=== PATIENT | male | born 1970 | race Caucasian/White ===

== ENCOUNTER → 2018-12-31 14:20 | Outpatient (CLI) | payer BC, SELFPAY | PROVIDERS: Visit Provider Physician Assistant | DX: J02.9 Acute pharyngitis, unspecified (principal); J06.9 Acute upper respiratory infection, unspecified | CPT/HCPCS: 87070 ==

== ENCOUNTER 2019-05-09 23:56 | Emergency (ER) | payer BC, SELFPAY ==
[2019-05-10 00:01] VITALS: BP 134/66; PULSE 78; RESP 18; TEMP 36.1; O2SAT 100; BMI 24.4
--- NOTE | 2019-05-10 00:06 | DI.CT.S_ITS ---
PROCEDURE: CT KIDNEY URETER BLADDER (KUB) INDICATIONS: severe Left flank pain, radiation to groin TECHNIQUE: Noncontrast 5 mm thick sections acquired from the diaphragms to the symphysis. 5 mm thick coronal and sagittal reformats were then performed. For radiation dose reduction, the following was used: automated exposure control, adjustment of mA and/or kV according to patient size. COMPARISON: None. FINDINGS: Image quality: Diagnostic. Lung bases: Lung bases are clear. Heart size is normal. Urinary system: Both kidneys are normal in size. A no nephrolithiasis is identified. However, there is a one-2 mm calculus evident within the distal left ureter at the vesicoureteral junction (image 85, series 2), with associated mild to moderate hydroureter and mild hydronephrosis. Perinephric edema and periureteral edema is evident proximally. No additional renal or ureteral calculi are present bilaterally. There is no right-sided hydronephrosis. The bladder is within normal limits. No bladder calculi are evident. The prostate is not enlarged. Other solid organs: Liver is normal in size. Gallbladder is normal in size without surrounding inflammation. Pancreas is normal in contours. Spleen is normal in size. No adrenal nodules. Peritoneum and bowel: Unenhanced bowel loops demonstrate normal wall thickness and caliber. No free fluid or air. No loculated fluid collections are present. The appendix is well-visualized and normal. The small bowel loops are nondilated. The Nodes and vessels: No retroperitoneal or mesenteric adenopathy by size criteria. Aorta and inferior vena cava are normal in caliber. There is mild aortic atherosclerosis. Abdominal wall: No ventral hernias. Pelvis: No free pelvic fluid. No inguinal hernias or adenopathy. Bones: No suspicious bony lesions. No vertebral body compression fractures. IMPRESSION: 1. Small (1-2 mm) distal left ureteral calculus with corresponding mild to moderate hydroureter arthrosis and hydroureter. 2. No additional nephroureterolithiasis. Note: The preliminary [facility] report and the final report are concordant. Dictated by: Oswaldo Hollingsworth M.D. on 05/10/2019 at 7:11 Approved by: Oswaldo Hollingsworth M.D. on 05/10/2019 at 7:24
[2019-05-10 00:24] LABS: Add Manual Diff / Slide Review NO; Basophils Absolute Auto 0 /uL (0-100); Basophils Percent Auto 0.4 % (0-2); Eosinophils Absolute Auto 100 /uL (0-450); Eosinophils Percent Auto 0.7 % (2-4); Hematocrit 44.6 % (41-53); Lymphocytes Absolute Auto 2000 /uL (1100-4500); Lymphocytes Percent Auto 21.6 % (25-40); Mean Corpuscular HGB Conc 33.6 % (30-36); Mean Corpuscular Hemoglobin 30.1 PG (26-34); Mean Corpuscular Volume 89.4 fL (80-100); Monocytes Absolute Auto 1000 /uL (0-900); Monocytes Percent Auto 10.6 % (3-14); Neutrophils Absolute Auto 6100 /uL (1500-7000); Neutrophils Percent Auto 66.7 % (50-75); Platelet Count 186 X10^3/uL (150-400); Red Blood Cell Count 4.99 X10^6/uL (4.5-5.9); Red Cell Distribution Width 12.7 % (11.6-14.8); White Blood Cell Count 9.1 X10^3/uL (4.5-11.0)
[2019-05-10] MEDS: SODIUM CHLORIDE 0.9% 1,000 ML 1000 ML IV (00:24)
[2019-05-10] MEDS: KETOROLAC 60 MG/2 ML VIAL 15 MG IV (00:25)
--- NOTE | 2019-05-10 00:39 | ED_ITS ---
HPI - Male Genitourinary General Chief complaint: Urogenital-Male Stated complaint: left side pain thinks kidney stone Time Seen by Provider: 05/10/19 00:00 Source: patient and family Mode of arrival: ambulatory Limitations: no limitations History of Present Illness HPI Narrative: 49-year-old male nonsmoker presents with his in the chief complaint of severe sudden-onset left flank pain with radiation to his groin. He denies any history of the same. He has had no injuries in. It started a few hours prior to his arrival in his left back and now wraps around his flank and into his groin. He denies any provocation or palliation. He has had nausea and vomiting. He denies any fever but feels chilled. He denies any dysuria, frequency or urgency Onset (ago): hour(s) Duration: intermittent Location: left inguinal region and left flank Severity: severe Severity scale (1-10): 8 Quality: sharp and stabbing Relieving factors: none Exacerbating factors: none Reports nausea/vomiting Related Data Home Medications Medication Instructions Recorded Confirmed naproxen sodium [Aleve] 220 mg PO #0 08/24/17 12/31/18 fexofenadine PO 12/31/18 12/31/18 Previous Rx's Medication Instructions Recorded ketorolac 10 mg PO Q6H PRN #14 tab 05/10/19 ondansetron 4 mg PO TID-QID PRN #10 tab 05/10/19 tamsulosin [Flomax] 0.4 mg PO DAILY #10 cap 05/10/19 tramadol 50 mg PO Q8H PRN #14 tab 05/10/19 Allergies Allergy/AdvReac Type Severity Reaction Status Date / Time Penicillins [PENICILLINS] Allergy Unknown Verified 05/10/19 00:03 Review of Systems Constitutional Denies chills, Denies fever(s), Denies lethargy and Denies weakness Eyes Denies change in vision, Denies eye discharge, Denies irritation and Denies loss of vision ENT Ears, Nose, Mouth, and Throat: Denies change in voice, Denies neck pain and Denies sore throat Cardiovascular Denies chest pain, Denies irregular heart rhythm, Denies lightheadedness, Denies palpitations, Denies dyspnea, Denies dyspnea on exertion and Denies orthopnea Respiratory Denies cough, Denies dyspnea, Denies dyspnea on exertion and Denies wheezing Gastrointestinal Gastrointestinal: Denies abdominal pain, Denies change in bowel habits, Denies diarrhea, Reports nausea and Reports vomiting Genitourinary Denies hematuria, Reports flank pain, Denies urinary incontinence and Denies urinary urgency Musculoskeletal Denies neck pain Integumentary/Breasts Denies pruritus, Denies erythema, Denies rash and Denies wounds Neurologic Denies confusion, Denies loss of vision and Denies weakness Psychiatric Denies anxiety, Denies confusion, Denies depression, Denies homicidal ideation and Denies suicidal ideation Endocrine Denies palpitations Hematologic/Lymphatic Denies easy bruising Allergic/Immunologic Denies wheezing PFSH Social History Smoking Status: Never smoker Social History Smoking Status: Never smoker Exam Narrative Exam Narrative: GENERAL: 49-year-old male appears younger than stated age, obviously very uncomfortable and pacing in the room, hand on his left flank HEAD: Atraumatic. Normocephalic. No temporal or scalp tenderness. EYES: Pupils equal round and reactive. Extraocular motions intact. No scleral icterus. No injection or drainage. ENT: Nose without bleeding, purulent drainage or septal hematoma. Throat without erythema, tonsillar hypertrophy or exudate. Uvula midline. Airway patent. NECK: Trachea midline. No JVD or lymphadenopathy. Supple, nontender, no meningeal signs. CARDIOVASCULAR: Regular rate and rhythm without murmurs, gallops, or rubs. RESPIRATORY: Clear to auscultation. Breath sounds equal bilaterally. No wheezes, rales, or rhonchi. GASTROINTESTINAL: Abdomen soft, non-tender, nondistended. No hepato-splenomega ly, or palpable masses. No guarding. EXTREMITIES: No clubbing, cyanosis, or edema. No joint tenderness, effusion, or edema noted. BACK: Nontender without deformity or crepitance. No flank tenderness. NEURO: AOx3. SKIN: No rash or erythema. Initial Vital Signs Initial Vital Signs: Vital Signs Temperature 96.9 F L 05/10/19 00:01 Pulse Rate 78 05/10/19 00:01 Respiratory Rate 18 05/10/19 00:01 Blood Pressure 134/66 05/10/19 00:01 Pulse Oximetry 100 05/10/19 00:01 Course Orders Ordered: ED Orders 05/10/19 00:06 CT kidney ureter bladder (KUB) Stat 05/10/19 00:15 Complete Blood Count AUTO DIFF Stat 05/10/19 00:38 Basic Metabolic Panel Stat Discontinued Medications Sodium Chloride (Normal Saline 0.9%) 1,000 mls @ 1,000 mls/hr IV BOLUS ONE Stop: 05/10/19 01:05 Last Infusion: 05/10/19 02:01 Dose: 1,000 mls/hr Admin: 05/10/19 00:24 Dose: 1,000 mls/hr Lidocaine HCl 6.3 ml/ Sodium (Chloride) 56.3 mls @ 337.8 mls/hr IV NOW ONE Stop: 05/10/19 00:48 Last Infusion: 05/10/19 02:00 Dose: 337.8 mls/hr Admin: 05/10/19 01:41 Dose: 337.8 mls/hr Ketorolac Tromethamine (Toradol) 15 mg IV NOW ONE Stop: 05/10/19 00:07 Last Admin: 05/10/19 00:25 Dose: 15 mg Ondansetron HCl (Zofran) 4 mg IV Q4HR PRN PRN Reason: Nausea And Vomiting Ondansetron HCl (Zofran Odt Prepack) 1 bottle MISC SEEINSTR ONE Stop: 05/10/19 01:59 Last Admin: 05/10/19 02:16 Dose: 1 bottle Tamsulosin HCl (Flomax) 0.4 mg PO NOW ONE Stop: 05/10/19 01:59 Last Admin: 05/10/19 02:17 Dose: 0.4 mg Tramadol HCl (Ultram 50mg Prepack) 1 bottle MISC SEEINSTR ONE Stop: 05/10/19 01:59 Last Admin: 05/10/19 02:16 Dose: 1 bottle Vital Signs - 8 hr 05/10/19 00:01 05/10/19 02:20 Temperature 96.9 F L Pulse Rate 78 75 Respiratory Rate 18 16 Blood Pressure 134/66 Blood Pressure [Left Arm] 137/72 Pulse Oximetry 100 100 MDM - Male Genitourinary Lab Data Result diagrams: 05/10/19 00:15 05/10/19 00:38 Lab Results 05/10/19 05/10/19 Range/Units 00:15 00:38 WBC 9.1 (4.5-11.0) X10^3/uL RBC 4.99 (4.5-5.9) X10^6/uL Hgb 15.0 (13.5-17.5) g/dL Hct 44.6 (41-53) % MCV 89.4 (80-100) fL MCH 30.1 (26-34) PG MCHC 33.6 (30-36) % RDW 12.7 (11.6-14.8) % Plt Count 186 (150-400) X10^3/uL Neut % (Auto) 66.7 (50-75) % Lymph % (Auto) 21.6 L (25-40) % [place] % (Auto) 10.6 (3-14) % Eos % (Auto) 0.7 L (2-4) % Baso % (Auto) 0.4 (0-2) % Neut # (Auto) 6100 (2429-9237) /uL Lymph # (Auto) 2000 (2561-5148) /uL [place] # (Auto) 1000 H (0-900) /uL Eos # (Auto) 100 (0-450) /uL Baso # (Auto) 0 (0-100) /uL Sodium 140 (137-145) mmol/L Potassium 3.4 (3.4-5.1) mmol/L Chloride 108 H (98-107) mmol/L Carbon Dioxide 23 (22-32) mmol/L BUN 27 H (9-20) mg/dL Creatinine 1.00 (0.66-1.25) mg/dL Estimated GFR > 60.0 (>60) mL/min BUN/Creatinine Ratio 27.0 H (6-22) Glucose 155 H (70-100) mg/dL Calcium 9.3 (8.4-10.2) mg/dL Imaging Data CT KUB: Radiologist's impression: 1 mm stone distal left ureter Discharge Plan Departure Patient Disposition: Home Clinical Impression: Kidney calculi Discharge Date/Time: 05/10/19 02:43 Interventions: ED Discharge Assessment Last Done: 05/10/19 02:37 Instructions: DI for Kidney Stones Activity Restrictions/Additional Instructions: *You have been diagnosed with [left ureteral lithiasis] *What to do: *Take medications as directed: Prescriptions sent to [facility] (except Ultram) *Follow up with your primary care provider in 2-3 days, call for an appointment. Let them know you were seen in the Emergency Department and that we ask that you be seen in follow up. Additionally your been provided contact information for [facility] *Return to ER if you should have any new, worsening or concerning symptoms Prescriptions: New tamsulosin [Flomax] 0.4 mg capsule 0.4 mg PO DAILY Qty: 10 RF: 0 ketorolac 10 mg tablet 10 mg PO Q6H PRN (Reason: pain) Qty: 14 RF: 0 ondansetron 4 mg tablet,disintegrating 4 mg PO TID-QID PRN (Reason: nausea and vomiting) Qty: 10 RF: 0 tramadol 50 mg tablet 50 mg PO Q8H PRN (Reason: pain) Qty: 14 RF: 0 No Action fexofenadine PO RF: 0 naproxen sodium [Aleve] 220 MG capsule 220 mg PO Qty: 0 RF: 0 Referrals: Maranda Wills MD [Non-Staff] -
[2019-05-10 00:53] LABS: Blood Urea Nitrogen 27 mg/dL (9-20); Calcium 9.3 mg/dL (8.4-10.2); Carbon Dioxide 23 mmol/L (22-32); Chloride 108 mmol/L (98-107); Estimated Glomerular Filt Rate > 60.0 mL/min (>60); Glucose 155 mg/dL (70-100); HEMOLYSIS < 15 (0-50); Potassium 3.4 mmol/L (3.4-5.1); Sodium 140 mmol/L (137-145)
[2019-05-10] MEDS: LIDOCAINE 2% 6.3 ML in SODIUM CHLORIDE 0.9% 50 ML 337.8 ML IV (01:41)
[2019-05-10] MEDS: ONDANSETRON 4 MG ODT PREPACK 1 BOTTLE MISC (02:16)
[2019-05-10] MEDS: TRAMADOL 50 MG PREPACK 1 BOTTLE MISC (02:16)
[2019-05-10] MEDS: TAMSULOSIN 0.4 MG CAPSULE PO (02:17)
[2019-05-10 02:20] VITALS: BP 137/72; PULSE 75; RESP 16; O2SAT 100
== END 2019-05-10 02:43 | disposition home or self-care (01) ==
PROVIDERS: Emergency Provider Emergency Medicine
DX: N20.0 Calculus of kidney (principal)
CPT/HCPCS: 36415; 36591; 74176; 80048; 85025; 96361; 96365; 96375; 99283; 99284; J1885

== ENCOUNTER → 2023-03-29 14:04 | Outpatient (CLI) | payer BC, SELFPAY ==
--- NOTE | 2023-03-29 | DI.CT.S_ITS ---
PROCEDURE: CT KIDNEY URETER BLADDER (KUB) INDICATIONS: Personal history of urinary calculi TECHNIQUE: Axial sections were acquired from the lung bases to the pubic symphysis. Coronal and sagittal reformats were performed. For radiation dose reduction, the following was used: automated exposure control, adjustment of mA and/or kV according to patient size. COMPARISON: [facility], CT, CT KIDNEY URETER BLADDER (KUB), 05/10/2019, 0:08. FINDINGS: Image quality: Excellent. Lung bases: Lung bases are clear. Heart: No significant findings. URINARY: Right Kidney/ureter: There is an obstructing 4 mm distal right ureteral stone with associated mild right hydroureteronephrosis. Minimal renal pelvic and proximal right ureteral enhancement and stranding. Minimal right perinephric stranding. Left Kidney: No stones or hydronephrosis. Left Ureter: No hydroureter. Bladder: Normal wall thickness. No stones. ABDOMEN: Liver: Unremarkable. Gallbladder: Gallbladder is mildly contracted. Biliary ducts: Unremarkable. Pancreas: Unremarkable. Spleen: Unremarkable. Adrenal Glands: Unremarkable. Stomach and Bowel: Stomach, small bowel loops, and colon are unremarkable. Normal appendix. Peritoneum: No abnormal intraperitoneal fluid. No free air. Ventral Wall: No hernia. Abdominal Nodes: No enlarged retroperitoneal or mesenteric lymph nodes. Vessels: Aorta and inferior vena cava are normal in size. PELVIS: Pelvic Organs: Unremarkable. Pelvic Nodes: Unremarkable. Miscellaneous: No inguinal hernias are seen. Bones: No acute compression fractures. Mild multilevel spondylosis. IMPRESSION: Obstructing 4 mm distal right ureteral stone with associated mild right hydroureteronephrosis. There is also mild right perinephric and periureteral stranding. Recommend clinical correlation for possible concurrent infectious uropathy symptoms. Normal appendix. Dictated by: Arvin Ahuja M.D. on 03/29/2023 at 16:53 Approved by: Arvin Ahuja M.D. on 03/29/2023 at 16:59
== END ==
PROVIDERS: PCP Registered Nurse; Referring Provider Registered Nurse; Visit Provider Registered Nurse
DX: N20.0 Calculus of kidney (principal)
CPT/HCPCS: 74176

== ENCOUNTER → 2023-03-30 11:44 | Outpatient (CLI) | payer BC, SELFPAY ==
[2023-03-30 11:59] LABS: Appearance Urine UA CLEAR; Bilirubin Urine UA NEGATIVE (NEGATIVE); Color Urine UA YELLOW; Glucose Urine UA NEGATIVE (Negative); Ketones Urine UA NEGATIVE (NEGATIVE); Leukocyte Esterase Urine UA TRACE (NEGATIVE); Nitrite Urine UA NEGATIVE (Negative); Occult Blood Urine UA TRACE-INTACT (Negative); Protein Urine UA NEGATIVE (Negative); Urobilinogen Urine UA 0.2 E.U./dL (0.2)
[2023-03-30 12:13] LABS: Bacteria Urine None Seen; Culture Indicated Urine Specimen Cultured; RBC Urine 0-1/HPF (0-5/HPF); Squamous Epithelial Cell Urine None Seen (0-5/HPF); WBC Urine 1-5/HPF (0-5/HPF)
[2023-03-30 12:16] LABS: Add Manual Diff / Slide Review NO; Basophils Absolute Auto 0 /uL (0-100); Basophils Percent Auto 0.6 % (0-2); Eosinophils Absolute Auto 100 /uL (0-450); Eosinophils Percent Auto 2.5 % (2-4); Hematocrit 39.2 % (41-53); Hemoglobin 13.4 g/dL (13.5-17.5); Lymphocytes Absolute Auto 1100 /uL (1100-4500); Lymphocytes Percent Auto 20.3 % (25-40); Mean Corpuscular HGB Conc 34.1 % (30-36); Mean Corpuscular Hemoglobin 31.1 PG (26-34); Mean Corpuscular Volume 91.2 fL (80-100); Monocytes Absolute Auto 500 /uL (0-900); Neutrophils Absolute Auto 3500 /uL (1500-7000); Neutrophils Percent Auto 67.6 % (50-75); Platelet Count 186 X10^3/uL (150-400); Red Cell Distribution Width 13.1 % (11.6-14.8); White Blood Cell Count 5.2 X10^3/uL (4.5-11.0)
[2023-03-30 12:39] LABS: Alanine Aminotransferase 21 IU/L (<50); Albumin 3.8 g/dL (3.5-5.0); Albumin Globulin Ratio 1.4 (1.0-2.8); Alkaline Phosphatase 81 U/L (38-126); Aspartate Aminotransferase 21 IU/L (17-59); BUN Creatinine Ratio 21.2 (6-22); Bilirubin Total 0.5 mg/dL (0.2-1.3); Blood Urea Nitrogen 24 mg/dL (9-20); Calcium 8.8 mg/dL (8.4-10.2); Carbon Dioxide 29 mmol/L (22-32); Chloride 104 mmol/L (98-107); Estimated Glomerular Filt Rate > 60 mL/min (>60); Globulin 2.7 g/dL (1.7-4.1); Glucose 100 mg/dL (70-100); HEMOLYSIS < 15 (0-50); Potassium 4.2 mmol/L (3.4-5.1); Sodium 137 mmol/L (137-145); Total Protein 6.5 g/dL (6.3-8.2)
== END ==
PROVIDERS: PCP Registered Nurse; Referring Provider Registered Nurse; Visit Provider Registered Nurse
DX: N20.0 Calculus of kidney (principal)
CPT/HCPCS: 36415; 80053; 81001; 85025; 87086

== ENCOUNTER → 2023-04-23 15:35 | Outpatient (CLI) | payer BC, SELFPAY ==
--- NOTE | 2023-04-23 15:36 | DI.CT.S_ITS ---
PROCEDURE: CT KIDNEY URETER BLADDER (KUB) INDICATIONS: Asymptomatic microscopic hematuria TECHNIQUE: Axial sections were acquired from the lung bases to the pubic symphysis. Coronal and sagittal reformats were performed. For radiation dose reduction, the following was used: automated exposure control, adjustment of mA and/or kV according to patient size. COMPARISON: [facility], CT, CT KIDNEY URETER BLADDER (KUB), 03/29/2023, 14:23. FINDINGS: Image quality: Excellent. Lung bases: Unremarkable. Heart: No significant findings. URINARY: Right Kidney: Persistent 4 millimeter stone within the distal right ureter. Decreased hydronephrosis. Right Ureter: Mild hydroureter. Left Kidney: No stones or hydronephrosis. Left Ureter: No hydroureter. Bladder: Normal wall thickness. No stones. ABDOMEN: Liver: Unremarkable. Gallbladder: Unremarkable. Biliary ducts: Unremarkable. Pancreas: Unremarkable. Spleen: Unremarkable. Adrenal Glands: Unremarkable. Stomach and Bowel: Stomach, small bowel loops, and colon are unremarkable. Peritoneum: No abnormal intraperitoneal fluid. No free air. Ventral Wall: No hernia. Abdominal Nodes: No enlarged retroperitoneal or mesenteric lymph nodes. Vessels: Aorta and inferior vena cava are normal in size. PELVIS: Pelvic Organs: Unremarkable. Pelvic Nodes: Unremarkable. Miscellaneous: No inguinal hernias are seen. Bones: Unremarkable. IMPRESSION: Persistent 4 millimeter stone within the distal right ureter, with decreased hydronephrosis and hydroureter. Dictated by: Avelino Peng M.D. on 04/23/2023 at 16:10 Approved by: Avelino Peng M.D. on 04/23/2023 at 16:13
== END ==
PROVIDERS: PCP Registered Nurse; Referring Provider Registered Nurse; Visit Provider Registered Nurse
DX: N13.2 Hydronephrosis with renal and ureteral calculous obstruction (principal); R30.0 Dysuria; R31.21 Asymptomatic microscopic hematuria; Z87.442 Personal history of urinary calculi
CPT/HCPCS: 74176

== ENCOUNTER 2023-05-01 22:45 | Emergency (ER) | payer BC, SELFPAY ==
[2023-05-01 22:49] VITALS: BP 177/105
[2023-05-01 22:50] VITALS: BP 177/105; PULSE 62; PULSE 82; RESP 18; TEMP 36.6; O2SAT 99; BMI 24.7
--- NOTE | 2023-05-01 22:55 | DI.RAD.S_ITS ---
PROCEDURE: XR KUB INDICATIONS: flank pain, known 4mm stone TECHNIQUE: One view of the abdomen acquired. COMPARISON: [facility], CT, CT KIDNEY URETER BLADDER (KUB), 04/23/2023, 15:46. FINDINGS: Surgical changes and devices: None. Bowel: Bowel gas pattern is nonobstructive. Moderate right colonic stool. Soft tissues: No suspicious abdominal calcifications. Visualized solid organ contours appear normal in size. Right pelvic calcification overlying region right ureteral calculus. Bones: No suspicious bony lesions. IMPRESSION: Right pelvic calcification within region previously identified distal ureteral calculus. Dictated by: Bernadette Almaraz M.D. on 05/02/2023 at 0:01 Approved by: Bernadette Almaraz M.D. on 05/02/2023 at 0:02
[2023-05-01 23:00] VITALS: BP 154/89; PULSE 69; RESP 18; O2SAT 99
[2023-05-01] MEDS: PANTOPRAZOLE 40 MG VIAL IV (23:19)
[2023-05-01] MEDS: SODIUM CHLORIDE 0.9% 1,000 ML 1000 ML IV (23:19)
[2023-05-01] MEDS: ONDANSETRON 4 MG/2 ML INJ IV (23:19)
[2023-05-01 23:30] VITALS: BP 156/84; PULSE 63; O2SAT 100
[2023-05-01 23:30] LABS: Alanine Aminotransferase 23 IU/L (<50); Albumin Globulin Ratio 1.3 (1.0-2.8); Alkaline Phosphatase 91 U/L (38-126); Aspartate Aminotransferase 24 IU/L (17-59); BUN Creatinine Ratio 20.9 (6-22); Bilirubin Total 0.7 mg/dL (0.2-1.3); Blood Urea Nitrogen 32 mg/dL (9-20); Calcium 8.9 mg/dL (8.4-10.2); Carbon Dioxide 25 mmol/L (22-32); Chloride 105 mmol/L (98-107); Estimated Glomerular Filt Rate 55 mL/min (>60); Glucose 99 mg/dL (70-100); HEMOLYSIS < 15 (0-50); Potassium 3.8 mmol/L (3.4-5.1); Sodium 139 mmol/L (137-145)
--- NOTE | 2023-05-01 23:30 | PC.NURSE ---
pt has a hx of a kidney stone on the right has had CT x 2 now c/o nausea, pt has appt with urologist next week
[2023-05-02] VITALS: PULSE 61; O2SAT 100
[2023-05-02 00:30] VITALS: PULSE 62; O2SAT 99
[2023-05-02 01:00] VITALS: PULSE 64; O2SAT 100
--- NOTE | 2023-05-02 01:29 | ED_ITS ---
HPI - Back Pain/Injury General Chief Complaint: Back Pain/Injury Stated Complaint: kidney stone stuck in ureter,sent by MD Time Seen by Provider: 05/01/23 22:54 Source: patient History of Present Illness HPI Narrative: 53-year-old male nonsmoker with history of known right-sided kidney stone that he has been dealing with for the past 4 weeks presents with increasing right flank pain, nausea and generally feeling unwell. He contacted his primary care provider and was directed to the emergency department for further evaluation. He has an appointment on the books with the [facility] next week. He denies fever or chills but states that he has pain in his right flank and right groin. He has had 2 CTs confirming a 4 mm stone in the right distal ureter. He has been taking his medications as directed which includes Flomax Related Data Previous Rx's Medication Instructions Recorded ondansetron 4 mg disintegrating 4 mg PO TID-QID PRN nausea and 05/02/23 tablet vomiting #10 tabs tramadol 50 mg tablet 50 mg PO Q8H PRN pain #14 tabs 05/02/23 Allergies Allergy/AdvReac Type Severity Reaction Status Date / Time Penicillins [PENICILLINS] Allergy Unknown Verified 05/10/19 00:03 Review of Systems Review of Systems Narrative: GENERAL: See HPI HEENT: Denies sinus pain, ear pain, sore throat, difficulty swallowing, dizziness. RESPIRATORY: Denies dyspnea, cough, wheezing, hemoptysis, sputum. CARDIOVASCULAR: Denies chest pain, palpitations, orthopnea, edema, GASTROINTESTINAL: Denies nausea, vomiting, abdominal pain, diarrhea, constipation, melena. : See HPI MUSCULOSKELETAL: denies weakness, joint pain, or bony pain SKIN: Denies rash, skin lesions, or other NEUROLOGIC: Denies weakness, headache, numbness, change in speech, confusion, seizures, incoordination. PSYCHIATRIC: No concerning psychosocial issues. 12 point review of systems is negative except for those stated above Patient History Medical History (Updated 05/02/23 @ 02:18 by Milad Walker DO) Coronavirus infection Sinusitis Social History Smoking Status: Never smoker Smoking Status: Never smoker Substance Use Type: does not use Exam Narrative Exam Narrative: GENERAL: [53] year old patient appears stated age. Well-developed patient, in mild distress. HEAD: Atraumatic. Normocephalic. EYES: Pupils equal round and reactive. Extraocular motions intact. No scleral icterus. No injection or drainage. ENT: Nose without bleeding, purulent drainage. Throat without erythema, tonsillar hypertrophy or exudate. Airway patent. NECK: Trachea midline. Non tender CARDIOVASCULAR: Regular rate and rhythm without murmurs, gallops, or rubs. RESPIRATORY: Clear to auscultation. Breath sounds equal bilaterally. No wheezes, rales, or rhonchi. GASTROINTESTINAL: Abdomen soft, non-tender, nondistended. EXTREMITIES: No edema or joint tenderness. BACK: Nontender without deformity or crepitance. No flank tenderness. NEURO: AOx3. SKIN: No rash or erythema of visible areas Initial Vital Signs Initial Vital Signs: Vital Signs Blood Pressure 177/105 H 05/01/23 22:49 Course Orders Ordered: ED Orders 05/01/23 22:55 XR KUB Stat Sodium Chloride (Normal Saline 0.9%) 1,000 mls @ 1,000 mls/hr IV BOLUS ONE Stop: 05/02/23 02:34 Last Admin: 05/02/23 01:36 Dose: 1,000 mls/hr Ondansetron HCl (Ondansetron 4 Mg Odt Prepack) 1 bottle MISC SEEINSTR ONE Stop: 05/02/23 02:22 Discontinued Medications Sodium Chloride (Normal Saline 0.9%) 1,000 mls @ 1,000 mls/hr IV BOLUS ONE Stop: 05/01/23 23:54 Last Infusion: 05/02/23 01:02 Dose: 0 mls/hr Documented By: Admin: 05/01/23 23:19 Dose: 1,000 mls/hr Documented By: DUARTE Ondansetron HCl (Ondansetron 4 Mg/2 Ml Inj) 4 mg IV NOW ONE Stop: 05/01/23 22:56 Last Admin: 05/01/23 23:19 Dose: 4 mg Documented By: DUARTE Pantoprazole Sodium (Pantoprazole 40 Mg Vial) 40 mg IV NOW ONE Stop: 05/01/23 22:56 Last Admin: 05/01/23 23:19 Dose: 40 mg Documented By: DUARTE Consultations Consultation #1: discussed with security professional urology Dr. Fregoso. We have discussed patient's clinical course including the history and physical exam for today, labs and imaging. He states patient is appropriate for discharge, requests that we transmitted information to his office and he will get patient in the next day or 2. Vital Signs Vital signs: Vital Signs - 8 hr 05/01/23 22:50 05/01/23 22:49 05/01/23 22:50 Temperature 97.9 F Pulse Rate 62 82 Respiratory Rate 18 Blood Pressure 177/105 H 177/105 H Pulse Oximetry 99 99 Oxygen Delivery Method Room Air 05/01/23 23:00 05/01/23 23:00 05/01/23 23:30 Temperature Pulse Rate 69 Respiratory Rate 18 Blood Pressure 154/89 H 156/84 H Pulse Oximetry 99 Oxygen Delivery Method 05/01/23 23:30 05/02/23 00:00 05/02/23 00:30 Temperature Pulse Rate 63 61 62 Respiratory Rate Blood Pressure Pulse Oximetry 100 100 99 Oxygen Delivery Method 05/02/23 01:00 05/02/23 01:30 Temperature Pulse Rate 64 69 Respiratory Rate Blood Pressure Pulse Oximetry 100 100 Oxygen Delivery Method MDM - Back Pain/Injury Lab Data 05/01/23 11:08 Labs: Lab Results 05/01/23 Range/Units 11:08 Sodium 139 (137-145) mmol/L Potassium 3.8 (3.4-5.1) mmol/L Chloride 105 (98-107) mmol/L Carbon Dioxide 25 (22-32) mmol/L BUN 32 H (9-20) mg/dL Creatinine 1.53 H (0.66-1.25) mg/dL Estimated GFR 55 L (>60) mL/min BUN/Creatinine Ratio 20.9 (6-22) Glucose 99 (70-100) mg/dL Calcium 8.9 (8.4-10.2) mg/dL Total Bilirubin 0.7 (0.2-1.3) mg/dL AST 24 (17-59) IU/L ALT 23 (<50) IU/L Alkaline Phosphatase 91 (38-126) U/L Total Protein 7.0 (6.3-8.2) g/dL Albumin 4.0 (3.5-5.0) g/dL Globulin 3.0 (1.7-4.1) g/dL Albumin/Globulin Ratio 1.3 (1.0-2.8) MDM Narrative Medical decision making narrative: [53] year old patient presents with R flank pain and feeling a bit punky Multiple etiologies for patient's symptoms considered including, but not limited to: [dehydration vs. obstructive uropathy vs. infection vs. other] Prior Charts reviewed in our EMR Primary Historian: patient Labs reviewed and interpreted by myself: slight bump in creatinine, no signs of infection Imaging reviewed: Xray KUB notes no obvious change in size or location of known stone Consultations: discussed with Dr. Fregoso, see details above Patient's symptoms improved over duration of stay with above-stated therapies. He has no signs of sepsis and is feeling much better after fluids. I have discussed with Urology who states there is no indication for repeat labs or imaging, patient is appropriate for discharge and will follow-up closely in the office Findings and discharge diagnosis discussed with patient/family followed by verbalization of understanding Return precautions discussed with patient/family whom verbalize understanding of diagnosis and plan Discharge Plan Departure Patient Disposition: Home Clinical Impression: Kidney stone on right side, Acute kidney injury Instructions: Kidney Stones -- Adult Activity Restrictions/Additional Instructions: *You have been diagnosed with [right sided kidney stone with mild acute kidney injury ] *What to do: *Please continue to take your regular medications as directed. [x ] New medication prescriptions sent to your pharmacy: [[facility] ] [ ] New medication written as a paper prescription [ ] No new medications given *Please follow up with Dr. Fregoso in the Urology Clinic, call later today for an appointment. Let them know you were seen in the Emergency Department and that we ask that you be seen in follow up. We will electronically transmit a record of today's note *Return to Emergency Department if you should have any new, worsening or concerning symptoms, such as [fever greater than 101 F, shaking chills, worsening pain, persistent vomiting or other bothersome symptoms] Prescriptions: New ondansetron 4 mg tablet,disintegrating 4 mg PO TID-QID PRN (Reason: nausea and vomiting) Qty: 10 0RF tramadol 50 mg tablet 50 mg PO Q8H PRN (Reason: pain) Qty: 14 0RF Referrals: Vinita Knowles ARNP [Primary Care Provider] - Stand Alone Forms: Patient Portal/API
[2023-05-02 01:30] VITALS: PULSE 69; O2SAT 100
[2023-05-02] MEDS: SODIUM CHLORIDE 0.9% 1,000 ML 1000 ML IV (01:36)
[2023-05-02 02:00] VITALS: PULSE 71; O2SAT 100
[2023-05-02] MEDS: ONDANSETRON 4 MG ODT PREPACK 1 BOTTLE MISC (02:27)
== END 2023-05-02 02:30 | disposition home or self-care (01) ==
PROVIDERS: Emergency Provider Emergency Medicine; PCP Registered Nurse
DX: N17.9 Acute kidney failure, unspecified (principal); N20.0 Calculus of kidney
CPT/HCPCS: 36415; 74018; 80053; 96374; 96375; 99284; C9113; J2405

== ENCOUNTER → 2024-09-09 08:43 | Outpatient (CLI) | payer BC, SELFPAY ==
--- NOTE | 2024-09-09 08:43 | DI.MRI.S_ITS ---
PROCEDURE: MR LUMBAR SPINE WO CON INDICATIONS: SPINAL STENOSIS LUMBAR REGION,AXIAL LUMBAR PAIN TECHNIQUE: Noncontrast sagittal T1 spin echo and T2 fast echo, sagittal STIR, and T2 fast spin echo through the lumbar spine. In cases with scoliosis, additional coronal T2 fast spin echo may be performed. COMPARISON: None. FINDINGS: Image quality: Somewhat limited evaluation given patient motion. Mild retrolisthesis of L3 on L4, L4 on L5 and L5 on S1. Vertebral body height of the lumbar spine are well maintained. Mild fibrovascular end plate change at L1-2. Marrow edema about the left aspect of L5-S1 facet, favoring degenerative. Multilevel disc desiccation disc bulge. Conus terminates at the level L1-2, and is unremarkable. Right neural foraminal stenosis: Mild at L3-4, L4-5, and L5-S1. Left neural foraminal stenosis: Mild at L5-S1. Axial images: T12-L1: Mild bilateral facet arthropathy. No central canal stenosis. L1-2: Mild bilateral facet arthropathy. No central canal stenosis. L2-3: Mild bilateral facet arthropathy. No central canal stenosis. L3-4: Mild disc bulge. Mild bilateral facet arthropathy with fluid within bilateral facet. No central canal stenosis. L4-5: Mild bilateral facet arthropathy with fluid within bilateral facet. No central canal stenosis. Mild disc bulge. L5-S1: Mild right, severe left facet arthropathy. No central canal stenosis. Mild disc bulge. Visualized sacrum is intact. No abdominal aortic aneurysm. IMPRESSION: 1. Multilevel degenerative changes of the lumbar spine, most pronounced at L5-S1, where there is mild bilateral neural foraminal stenosis. Dictated by: Suellen Carreno M.D. on 09/09/2024 at 14:18 Approved by: Suellen Carreno M.D. on 09/09/2024 at 14:27
== END ==
LOC: MRI 08:43
PROVIDERS: PCP Registered Nurse; Referring Provider Physical Medicine & Rehabilitation Pain Medicine; Visit Provider Physical Medicine & Rehabilitation Pain Medicine
DX: M48.061 Spinal stenosis, lumbar region without neurogenic claudication (principal); M48.07 Spinal stenosis, lumbosacral region; M47.817 Spondylosis without myelopathy or radiculopathy, lumbosacral region; M47.816 Spondylosis without myelopathy or radiculopathy, lumbar region
CPT/HCPCS: 72148

== ENCOUNTER 2025-02-19 10:56 | Emergency (ER) | payer BC, SELFPAY ==
[2025-02-19] VITALS (7 sets, daily range): BP systolic 119–143; BP diastolic 74–93; PULSE 89–185; RESP 13–29; TEMP 36.6; O2SAT 99–100
--- NOTE | 2025-02-19 11:00 | EKG_ITS ---
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
--- NOTE | 2025-02-19 11:00 | DI.RAD.S_ITS ---
PROCEDURE: XR CHEST 1V INDICATIONS: chest pain TECHNIQUE: One view of the chest was acquired. COMPARISON: None. FINDINGS: Surgical changes and devices: None. Lungs and pleura: Lungs are clear. No pleural effusions or pneumothorax. Mediastinum: Mediastinal contours appear normal. Heart size is normal. Bones and chest wall: No suspicious bony lesions. Overlying soft tissues appear unremarkable. IMPRESSION: No acute cardiopulmonary abnormality is seen. Dictated by: Romulo Mcgarry M.D. on 02/19/2025 at 11:46 Approved by: Romulo Mcgarry M.D. on 02/19/2025 at 11:47
--- NOTE | 2025-02-19 11:11 | ED_ITS ---
HPI - Arrhythmia/Palpitations General Chief Complaint: Arrhythmia/Palpitations Stated Complaint: Fast heart beat , light headedness Time Seen by Provider: 02/19/25 11:10 Source: patient Mode of arrival: Ambulatory History of Present Illness HPI narrative: Patient is a 54-year-old male with any significant past medical history presents for palpitations fast heart rate. He states that he was at work started noticing some palpitations checked his heart rate and it was in the 190s. Time of evaluation patient just feeling palpitations but no chest pain shortness of breath. He states that this has happened in the past states it normally lasts only 20 minutes does at carotid massage and it goes away, states that he has seen Dr. Sewell of cardiology and had a normal Holter monitor previously. He states that this episode has lasted an hour and a half therefore decided come into the ED for further evaluation treatment. Patient otherwise not complaining of any other symptoms at this time. Related Data Previous Rx's Medication Instructions Recorded ondansetron 4 mg disintegrating 4 mg PO TID-QID PRN nausea and 05/02/23 tablet vomiting #10 tabs tramadol 50 mg tablet 50 mg PO Q8H PRN pain #14 tabs 05/02/23 Allergies Allergy/AdvReac Type Severity Reaction Status Date / Time Penicillins [PENICILLINS] Allergy Unknown Verified 05/10/19 00:03 Review of Systems Review of Systems Narrative: General: Denies fever, chills, weight loss HEENT: Denies headache, eye drainage, eye irritation, head trauma, sore throat, voice change Cardiovascular: Positive palpitations, Denies any chest pain, tachycardia Respiratory: Denies any shortness of breath, cough, wheeze, stridor GI/: Denies any abdominal pain, nausea, vomiting, diarrhea, bright red blood per rectum, melanotic stools, urinary frequency, urinary retention, dysuria, hematuria MSK: Denies any joint pain, muscle pains, swelling Skin: Denies any rashes, lesions, discoloration Neuro: Denies any headache, lightheadedness, dizziness, fainting, weakness Psych: Denies SI/HI Patient History Medical History (Updated 02/19/25 @ 12:42 by Anshul Childress DO) Sinusitis Coronavirus infection Social History Smoking Status: Never smoker Smoking Status: Never smoker Exam Narrative Exam Narrative: General: Cooperative, well-developed, not in acute distress HEENT: Normocephalic, atraumatic, PERRLA, normal sclera, eyelids normal Neck: Active full range of motion, atraumatic Chest: Normal to inspection, negative crepitus, no overlying erythema ecchymosis Respiratory: Normal respiratory effort, not in acute respiratory distress, clear to auscultation bilaterally negative cough, wheeze, tachypnea, rhonchi, rales Cardiology: Tachycardic, negative gallops, murmur, rubs GI/: No tenderness to palpation, soft, non rigid, normal to inspection, exam deferred MSK: Full active range of motion in all 4 extremities, atraumatic, no tenderness to palpation of any bony prominences Skin: No rashes or lesions noted Neuro: Alert awake oriented x3, moves all 4 extremities spontaneously, cranial nerves intact, able to answer all questions appropriately follows commands appropriately Psych: Cooperative, negative suicidal or homicidal ideations Initial Vital Signs Initial Vital Signs: Vital Signs Temperature 98 F 02/19/25 11:00 Pulse Rate 185 H 02/19/25 11:00 Respiratory Rate 22 02/19/25 11:00 Blood Pressure 143/93 H 02/19/25 11:00 Pulse Oximetry 100 02/19/25 11:00 Oxygen Delivery Method Room Air 02/19/25 11:00 Course Orders Ordered: ED Orders 02/19/25 11:00 XR chest 1V Stat EKG-12 Lead Stat 02/19/25 11:09 Complete Blood Count AUTO DIFF Stat Comprehensive Metabolic Panel Stat Magnesium Stat TSH [Thyroid Stimulating Hormone] Stat Discontinued Medications Aspirin (Aspirin 81 Mg Chew Tab) 324 mg PO NOW ONE Stop: 02/19/25 11:01 Last Admin: 02/19/25 11:17 Dose: Not Given Documented By: LI Magnesium Sulfate (Magnesium Sulfate) 2 gm in 50 mls @ 150 mls/hr IV NOW ONE Stop: 02/19/25 11:29 Last Admin: 02/19/25 12:19 Dose: 150 mls/hr Documented By: LI Co-signed By: TRE Sodium Chloride (Normal Saline 0.9%) 1,000 mls @ 1,000 mls/hr IV BOLUS ONE Stop: 02/19/25 12:09 Last Infusion: 02/19/25 12:17 Dose: Infused Documented By: Admin: 02/19/25 11:15 Dose: 1,000 mls/hr Documented By: TRE(2) Vital Signs Vital signs: Vital Signs - 8 hr 02/19/25 11:00 02/19/25 11:06 02/19/25 11:30 Temperature 98 F Pulse Rate 185 H 179 H 94 H Respiratory Rate 22 19 29 H Blood Pressure 143/93 H Pulse Oximetry 100 99 100 Oxygen Delivery Method Room Air MDM - Arrhythmia/Palpitations Differential Diagnosis Differential diagnosis: Likely palpitations, artial fibrillation, artial flutter, ventricular premature beats, supraventricular tachycardia, WPW and other (Electrolyte abnormality) Lab Data 02/19/25 11:09 02/19/25 11:09 Labs: Lab Results 02/19/25 Range/Units 11:09 WBC 11.0 (4.5-11.0) X10^3/uL RBC 5.08 (4.5-5.9) X10^6/uL Hgb 15.4 (13.5-17.5) g/dL Hct 45.9 (41-53) % MCV 90.4 (80-100) fL MCH 30.4 (26-34) PG MCHC 33.6 (30-36) % RDW 13.2 (11.6-14.8) % Plt Count 270 (150-400) X10^3/uL Neut % (Auto) 75.0 (50-75) % Lymph % (Auto) 18.6 L (25-40) % Charlton % (Auto) 5.4 (3-14) % Eos % (Auto) 0.5 L (2-4) % Baso % (Auto) 0.5 (0-2) % Neut # (Auto) 8300 H (6600-7318) /uL Lymph # (Auto) 2000 (1500-3099) /uL Charlton # (Auto) 600 (0-900) /uL Eos # (Auto) 100 (0-450) /uL Baso # (Auto) 100 (0-100) /uL PT Cancelled INR Cancelled APTT Cancelled Sodium 140 (137-145) mmol/L Potassium 3.7 (3.4-5.1) mmol/L Chloride 109 H (98-107) mmol/L Carbon Dioxide 16 L (22-32) mmol/L BUN 18 (9-20) mg/dL Creatinine 1.32 H (0.66-1.25) mg/dL Estimated GFR > 60 (>60) mL/min BUN/Creatinine Ratio 13.6 (6-22) Glucose 210 H (70-100) mg/dL Calcium 9.5 (8.4-10.2) mg/dL Magnesium 1.7 (1.6-2.3) mg/dL Total Bilirubin 0.8 (0.2-1.3) mg/dL AST 32 (17-59) IU/L ALT 39 (<50) IU/L Alkaline Phosphatase 102 (38-126) U/L Total Creatine Kinase Cancelled Troponin I Cancelled NT-Pro-B Natriuret Pep Cancelled Total Protein 7.2 (6.3-8.2) g/dL Albumin 4.5 (3.5-5.0) g/dL Globulin 2.7 (1.7-4.1) g/dL Albumin/Globulin Ratio 1.7 (1.0-2.8) Lipase Cancelled TSH 3.25 (0.47-4.68) uIU/mL Imaging Data Chest x-ray: Radiologist's Impresson: [place] [address] XRay Report Signed Patient: Anuj Alberto MR#: [id number] : 1970 Acct:[id number] Age/Sex: 54 / M Date of Service: 02/19/25 Loc: ED Accession Number: [id number] Procedure: XR chest 1V Ordering Provider: Anshul Childress D.O. PROCEDURE: XR CHEST 1V INDICATIONS: chest pain TECHNIQUE: One view of the chest was acquired. COMPARISON: None. FINDINGS: Surgical changes and devices: None. Lungs and pleura: Lungs are clear. No pleural effusions or pneumothorax. Mediastinum: Mediastinal contours appear normal. Heart size is normal. Bones and chest wall: No suspicious bony lesions. Overlying soft tissues appear unremarkable. IMPRESSION: No acute cardiopulmonary abnormality is seen. ECG Data Interpretation: Initial EKG interpreted ED physician, SVT at 181 beats per minute QTC [address] changes no STEMI Repeat EKG after vagal, sinus at 99 beats per minute QTC 459, normal axis nonspecific ST changes no STEMI MDM Narrative Medical decision making narrative: 54-year-old male without any significant past medical history presenting for palpitations ongoing persistent for the past hour and a half. He states that he was at work and noticed palpitations checked his heart rate and it was in the 190s, he states that normally this has happened in the past he has done carotid massages and it has resolved however he states that today it lasted longer than normal and decided come into the ED for further evaluation treatment. At time of evaluation patient calm cooperative blood pressure stable, patient found to be in SVT, attempted vagal maneuvers time to, patient was able to come out of SVT without any administration of medication, fluids, magnesium and lab work was ordered along with a chest x-ray. 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 Sewell. Patient has remained normal sinus for he has entirety here in the emergency department, lab work is unremarkable, chest x-ray without any acute cardiopulmonary abnormality, EKG without any ischemic changes he was instructed to follow up with Cardiology and primary care in outpatient setting he was given strict return precautions he verbalized understanding of this and agrees with the discharged home with outpatient follow up Discharge Plan Departure Patient Disposition: Home Clinical Impression: SVT (supraventricular tachycardia) Instructions: Paroxysmal Supraventricular Tachycardia Activity Restrictions/Additional Instructions: Please follow up with Cardiology and primary care Please read the discharge instructions sheet carefully and bring all papers to all doctor follow-up visits, as it may contain information that your doctor may want to see. Disease processes change and evolve, if your symptoms worsen or if you develop any new symptoms that are concerning to you please return for evaluation. Your evaluation today does not show any evidence of any life- threatening/serious illnesses requiring admission to the hospital or surgery. Please follow-up with your doctor for re-evaluation in approximately 1 day. Seek immediate medical attention for any worrisome symptoms. *If you do not have a primary care provider please contact the [facility] Resource line at [phone]. They will ask some questions about your medical history and help get you set up with a doctor in the community. Prescriptions: No Action ondansetron 4 mg tablet,disintegrating 4 mg PO TID-QID PRN (Reason: nausea and vomiting) Qty: 10 0RF tramadol 50 mg tablet 50 mg PO Q8H PRN (Reason: pain) Qty: 14 0RF Referrals: Vinita Knowles ARNP [Primary Care Provider] - Brandy Sewell MD [Physician] - As soon as possible Stand Alone Forms: Patient Portal/API/Survey
--- NOTE | 2025-02-19 11:12 | EKG_ITS ---
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
[2025-02-19] MEDS: SODIUM CHLORIDE 0.9% 1,000 ML 1000 ML IV (11:15)
[2025-02-19 11:18] LABS: Add Manual Diff / Slide Review NO; Basophils Absolute Auto 100 /uL (0-100); Basophils Percent Auto 0.5 % (0-2); Eosinophils Absolute Auto 100 /uL (0-450); Eosinophils Percent Auto 0.5 % (2-4); Hematocrit 45.9 % (41-53); Hemoglobin 15.4 g/dL (13.5-17.5); Lymphocytes Absolute Auto 2000 /uL (1100-4500); Lymphocytes Percent Auto 18.6 % (25-40); Mean Corpuscular HGB Conc 33.6 % (30-36); Mean Corpuscular Hemoglobin 30.4 PG (26-34); Mean Corpuscular Volume 90.4 fL (80-100); Monocytes Absolute Auto 600 /uL (0-900); Monocytes Percent Auto 5.4 % (3-14); Neutrophils Absolute Auto 8300 /uL (1500-7000); Platelet Count 270 X10^3/uL (150-400); Red Blood Cell Count 5.08 X10^6/uL (4.5-5.9); Red Cell Distribution Width 13.2 % (11.6-14.8)
--- NOTE | 2025-02-19 11:23 | PC.NURSE ---
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 Dmitry cp, sob, dizziness. States that his HR was in 190s. Pt attempted vagal maneuver & carotid massage. No result with attempt and reports that rapid HR lasted longer than normal. Upon arrival to ED, pt's HR 185-190 during triage. EKG done. Dr Childress called to bedside. Another vagal maneuver attempt by and RN. Pt HR down to 94 and svt resolved. Pt remains cp free. A&Ox4. VS WNL
[2025-02-19 11:27] LABS: Alanine Aminotransferase 39 IU/L (<50); Albumin 4.5 g/dL (3.5-5.0); Albumin Globulin Ratio 1.7 (1.0-2.8); Alkaline Phosphatase 102 U/L (38-126); Aspartate Aminotransferase 32 IU/L (17-59); BUN Creatinine Ratio 13.6 (6-22); Bilirubin Total 0.8 mg/dL (0.2-1.3); Blood Urea Nitrogen 18 mg/dL (9-20); Calcium 9.5 mg/dL (8.4-10.2); Carbon Dioxide 16 mmol/L (22-32); Chloride 109 mmol/L (98-107); Estimated Glomerular Filt Rate > 60 mL/min (>60); Globulin 2.7 g/dL (1.7-4.1); Glucose 210 mg/dL (70-100); HEMOLYSIS < 15 (0-50); Magnesium 1.7 mg/dL (1.6-2.3); Potassium 3.7 mmol/L (3.4-5.1); Sodium 140 mmol/L (137-145); Total Protein 7.2 g/dL (6.3-8.2)
[2025-02-19 12:05] LABS: Thyroid Stimulating Hormone 3.25 uIU/mL (0.47-4.68)
[2025-02-19] MEDS: MAGNESIUM SULFATE 2 GM/50 ML PIGGYBACK IV (12:19)
== END 2025-02-19 12:47 | disposition home or self-care (01) ==
PROVIDERS: Emergency Provider Student in an Organized Health Care Education/Training Program; PCP Registered Nurse
DX: I47.10 Supraventricular tachycardia, unspecified (principal); R07.9 Chest pain, unspecified
CPT/HCPCS: 71045; 80053; 83735; 84443; 85025; 93005; 93010; 96361; 96365; 99284; J3475

== ENCOUNTER → 2025-04-28 08:07 | Outpatient (CLI) | payer BC, SELFPAY ==
--- NOTE | 2025-04-28 08:09 | DI.ECHO.S_ITS ---
[facility] : : [address] : : [place] : : [id number] : : Phone: [phone] Echocardiogram Report + + :Name: MARTHA VALE Study Date: 04/28/2025 Height: 73 in : :[facility] ReadingLocation: Weight: 205 lb : : Gender: Male BSA: 2.2 m2 : :: 1970 Age: 55 yrs BP: 120/86 mmHg: :Reason For Study: TACHYCARDIA : :Ordering Physician: OSWALDO LAW Performed By: Miguel Robertson : :Referring: OSWALDO LAW : + + Interpretation Summary 1. The left ventricular contractility is normal. Estimate ejection fraction is greater than 60% with no segmental wall motion abnormalities. No LVH. Unable to comment on diastolic function. 2. The right ventricle contractility is normal. 3. All cardiac chambers are of normal size. 4. No significant valvular abnormalities. 5. No obvious intracardiac shunts. 6. No obvious intracardiac masses nor thrombi. 7. No hemodynamically significant pericardial effusion. 8. Low right-sided filling pressures. Conclusion: Normal biventricular systolic function with no significant valvular abnormalities. Procedure: A two-dimensional transthoracic echocardiogram with color flow and Doppler was performed. The study quality was technically good. There is no prior echocardiogram noted for this patient. The patient was in a tachycardic rhythm during the exam. Left Ventricle: The left ventricle is normal in size. There is normal left ventricular wall thickness. There is no ventricular septal defect visualized. The ejection fraction is estimated to be 60-65%. There are no focal wall motion abnormalities. Right Ventricle: The right ventricle is normal in size and function. Atria: The left atrial size is normal. Right atrial size is normal. There is no Doppler evidence for an interatrial shunt. Mitral Valve: The mitral valve leaflets appear normal. There is no evidence of stenosis, fluttering, or prolapse. There is no mitral regurgitation noted. Aortic Valve: The aortic valve is trileaflet. The aortic valve opens well. No aortic regurgitation is present. Tricuspid Valve: The tricuspid valve leaflets are thin and pliable. No tricuspid regurgitation. Pulmonic Valve: The pulmonic valve is not well visualized. There is no pulmonic valvular regurgitation. Great Vessels: The aortic root is normal size. The dimensions of the ascending aorta are normal. The pulmonary artery is normal size. The IVC is of normal diameter and collapses greater than 50% with a sniff. This suggests a low right atrial pressure of 3 mm Hg. Pericardium/ Pleura There is no pericardial effusion. There is no pleural effusion. MMode/2D Measurements & Calculations LVIDd: 4.1 cm LVOT diam: 2.1 cm LVIDs: 3.1 cm Ao root diam: 3.4 cm FS: 24.4 % asc Aorta Diam: 3.0 cm EPSS: 0.70 cm Ao Arch Diam (Prox Trans): 1.7 cm IVSd: 0.96 cm LVPWd: 0.86 cm LV rodas. diameter/BSA (cm/m^2): 1.9 LV sys. diameter/BSA (cm/m^2): 1.4 LA A2 area: 17.6 cm2 RA long axis: 4.1 cm LA A4 area: 15.9 cm2 RA area: 10.8 cm2 LA length (vol): 5.0 cm RA vol: 24.4 ml LA vol: 47.4 ml RA : 11.2 ml/m2 LA vol index: 21.8 ml/m2 IVC diam: 1.4 cm RVD1 (basal): 2.9 cm RVD2 (mid): 2.6 cm Doppler Measurements & Calculations Ao V2 max: 113.5 cm/sec LVOT Max Sidney: 101.1 cm/sec Ao V2 mean: 77.3 cm/sec LV V1 max P.1 mmHg Ao max P.2 mmHg LV V1 VTI: 17.2 cm Ao mean P.6 mmHg KENDALL(I,D): 3.0 cm2 Ao V2 VTI: 19.2 cm KENDALL(V,D): 3.0 cm2 sev ratio: 0.89 KENDALL indexed to BSA (cm^2/m^2): 1.4 MV E max sidney: 56.1 cm/sec PA V2 max: 112.7 cm/sec MV A max sidney: 77.1 cm/sec PA V2 mean: 83.1 cm/sec MV E/A: 0.73 PA mean P.0 mmHg Med Peak E' Sidney: 5.0 cm/sec PA pr(Accel): 37.9 mmHg E/E' med: 11.2 Lat Peak E' Sidney: 4.9 cm/sec E/E' lat: 11.5 E/e' average: 11.4 MV dec time: 0.13 sec SV(LVOT): 57.7 ml Reading Physician:CATALINO
--- NOTE | 2025-04-28 08:09 | DI.NM.S_ITS ---
PROCEDURE: NM EXERCISE TREADMILL NON NUC COMPARISON: None. INDICATIONS: PAROXYMAL SVT FINDINGS: Rest ECG sinus rhythm 87 bpm. Elvis protocol 10:00, maximum heart rate 173 bpm (104% peak predicted), peak blood pressure 202/98, 12.8 METS, GILBERT 0%. Exercise ECG sinus tachycardia, 1-1.[address] segment depressions V5 and V6, rare PVCs. The patient did not report exercise-induced chest discomfort. IMPRESSION: Abnormal study. Exercise-induced ST segment changes consistent with ischemia. No evidence of exercise-induced arrhythmia. Normal hemodynamic response. Fair exercise capacity. Dictated by: Agata Andersen D.O. on 04/28/2025 at 16:44 Approved by: Agata Andersen D.O. on 04/28/2025 at 16:48
== END ==
LOC: NUCM 08:08
PROVIDERS: PCP Registered Nurse; Referring Provider Internal Medicine; Visit Provider Internal Medicine
DX: I47.10 Supraventricular tachycardia, unspecified (principal); R94.39 Abnormal result of other cardiovascular function study
CPT/HCPCS: 93017; 93306